=== PATIENT | male | born 1935 | race Caucasian/White ===

== ENCOUNTER → 2016-08-05 | Outpatient (CLI) | payer OTHER ==
[~2016-08-05] MED LIST: ASPIRIN81 M2 PO; ATROVENT NASAL15 ML; BABY ASA; DIAZEPAM PO; DIAZEPAM10 MG PO; GABAPENTIN300 M2 PO; HCTZ PO; HYTRIN PO; LIPITOR PO; LORTAB 7.5-3251 EACH PO; MEDROL DOSEPAK4 MG PO; NASACORT10.8 ML; TRAZADONE PO; TYLENOL325 M1 PO; ZYRTEC PO
--- NOTE | ~2016-08-05 | CT4 ---
[facility] A Service of [facility] RADIOLOGY TEXT RESULTS PATIENT: EBER RAMSEY [facility] : 35 UNIT #: [id number] AGE: [address]: Bharat Dixon MD SEX: M ORDER DR: [id number] [facility] [address] [place] [place], [place] [address] [id number] O MR#: [id number] Acc #: [id number] NAME: EBER RAMSEY : 1935 SEX: M STUDY DATE/TIME: 08/05/2016 10:38 [facility] RO[facility]: STUDY DESCRIPTION: CT Abd and Pelv Wo Cont Attending Physician: Bharat Dixon M.D. Referring Physician: Bharat Dixon M.D. Ordering Physician: Bharat Dixon M.D. Primary Care Physician: Bharat Dixon M.D. MEDICAL IMAGING REPORT This report is preliminary unless electronic signature is present EXAM CT abdomen and pelvis without contrast INDICATION Right flank pain for the past 2 weeks. Hematuria for the past week. PROCEDURE Unenhanced CT of the abdomen and pelvis. Study was performed and originally dictated on 08/05/2016. Apparently that dictation has been lost in counter roller. Request is for redictation on 08/14/2016. This CT exam was performed with one or more of the following radiation dose reduction techniques: automatic exposure control, adjustment of mA and/or kV according to patient size, and iterative reconstruction. COMPARISON 09/03/2013 FINDINGS ABDOMEN WITHOUT CONTRAST: Lung bases are predominately clear. Liver, spleen, adrenal glands, pancreas unremarkable unenhanced appearance. Previous cholecystectomy. Bilateral renal cysts largest in the lower pole right kidney measures 6.7 cm. There is no radiodense urinary system calculus or hydronephrosis. Uncomplicated sigmoid diverticula. Appendix is normal. PELVIS WITHOUT CONTRAST: No radiodense bladder calculus. Mild prostatomegaly. No aggressive appearing bone lesion. IMPRESSION 1. No acute findings in the abdomen or pelvis. No radiodense urinary system calculus or hydronephrosis. ST[facility] Service of [facility] RADIOLOGY TEXT RESULTS PATIENT: EBER RAMSEY [facility]: [id number] : 35 UNIT #: [id number] AGE: [address]: Bharat Dixon MD SEX: M ORDER DR: 2. Renal cysts and mild prostatomegaly. Dictated by... Dwayne Dixon M.D. THIS IS AN ELECTRONICALLY VERIFIED REPORT Dwayne Dixon M.D. at 08/15/2016 9:28 AM [place] TD: 08/14/2016 14:51 JOB #: [id number] MEDICAL IMAGING REPORT Page 1 of 1 COPY
== END | disposition home or self-care (01) ==
LOC: CCAT 09:50
DX: R10.30 Lower abdominal pain, unspecified (principal); N28.1 Cyst of kidney, acquired; N40.0 Benign prostatic hyperplasia without lower urinary tract symptoms
CPT/HCPCS: 74176